=== PATIENT | female | born 1945 | race Hispanic/Latino ===

== ENCOUNTER 2018-07-18 17:58 | Emergency (ER) | payer MEDICARE ==
[~2018-07-18] VITALS: Ht 154.9 cm; Wt 61.7 kg
[~2018-07-18 17:58] MED LIST: AMLODIPINE BESYL5 MG PO; GLIPIZIDE5 MG PO; LOSARTAN POTASS25 MG PO; METOPROLOL TART25 MG PO; SIMVASTATIN20 MG PO
[2018-07-18 23:00] LABS: BILIRUBIN,URINE NEGATIVE (NEGATIVE); CLARITY,URINE CLOUDY (CLEAR); COLOR,URINE YELLOW (YELLOW); KETONES,URINE NEGATIVE (NEGATIVE); LEUKOCYTE ESTERASE ,URINE MODERATE (NEGATIVE); NITRITE,URINE NEGATIVE (NEGATIVE); PROTEIN,URINE DIPSTICK TRACE (NEGATIVE); URINE UROBILINOGEN 0.2 mg/dL (0.2 - 1)
[2018-07-18 23:28] LABS: BACTERIA,URINE MANY /HPF; EPITHELIAL CELLS,URINE FEW /LPF; WBC,URINE (MAN) >50 /HPF (0-5)
[2018-07-18] MEDS ORDERED: CEFTRIAXONE SOD 1 GM VIAL IM ONE (23:30)
[2018-07-18] MEDS ORDERED: CEFTRIAXONE SOD 1 GM VIAL ONE (23:31)
[2018-07-18 23:42] VITALS: BP 188/76
== END 2018-07-18 23:47 | disposition home or self-care (01) ==
LOC: ER 17:58
DX: R10.2 Pelvic and perineal pain (principal); N30.90 Cystitis, unspecified without hematuria; I10 Essential (primary) hypertension; E11.9 Type 2 diabetes mellitus without complications; E78.5 Hyperlipidemia, unspecified
CPT/HCPCS: 81001; 99283; J0696

== ENCOUNTER 2021-06-20 20:01 | Emergency (ER) | payer MEDICARE ==
[~2021-06-20] VITALS: Ht 154.9 cm; Wt 61.7 kg
[2021-06-20] MEDS ORDERED: ONDANSETRON HCL INJ 2MG/ML 2ML 2 MG/ML VIAL IV STA (20:08)
[2021-06-20] MEDS ORDERED: METOPROLOL TARTRATE INJ 1 MG/ML VIAL IV ONE (20:15)
[2021-06-20] MEDS ORDERED: Morphine 4mg Syringe 4 MG/ML INJ IV ONE (20:15)
[2021-06-20 20:22] LABS: BASOPHILS # (AUTO) 0.1 (0.0-0.1); BASOPHILS % 0.7 % (0.0-1.0); EOSINOPHILS # (AUTO) 0.2 (0.0-0.4); EOSINOPHILS % 2.6 % (0.0-6.0); HEMATOCRIT 35.1 % (34.2-44.1); HEMOGLOBIN 11.4 g/dL (12.0-16.0); LYMPHOCYTES # (AUTO) 2.9 (1.0-3.2); LYMPHOCYTES % 33.6 % (18.0-39.1); MEAN CORPUSCULAR HEMOGLOBIN 32.9 pg (28-32); MEAN CORPUSCULAR HGB CONC 32.5 g/dL (31-35); MEAN CORPUSCULAR VOLUME 101.2 fL (81-99); MONOCYTES # (AUTO) 0.7 (0.2-0.8); NEUTROPHILS # (AUTO) 4.8 (2.1-6.9); NEUTROPHILS % 54.9 % (38.7-80.0); PLATELET COUNT 296 x10e3/uL (140-360); RED BLOOD COUNT 3.47 x10e6/uL (3.6-5.1); RED CELL DISTRIBUTION WIDTH 12.9 % (11.7-14.4)
[2021-06-20 20:33] LABS: INR 0.89; PROTHROMBIN TIME 12.9 seconds (11.9-14.5)
[2021-06-20 20:34] LABS: PARTIAL THROMBOPLASTIN TIME 28.4 seconds (23.8-35.5)
[2021-06-20 20:42] LABS: ALBUMIN 3.5 g/dL (3.5-5.0); ALBUMIN/GLOBULIN RATIO 0.8 (0.8-2.0); ANION GAP 13.1 mmol/L (8-16); CALCIUM 9.6 mg/dL (8.4-10.2); CREATININE, SERUM 2.33 mg/dL (0.57-1.11); POTASSIUM 4.1 mmol/L (3.5-5.1)
[2021-06-20 20:48] LABS: CREATINE KINASE MB 17.1 ng/mL (0-5.0)
[2021-06-20] MEDS ORDERED: ASPIRIN 81 MG CHEW TAB PO ONE (21:00)
[2021-06-20] MEDS ORDERED: ASPIRIN 81 MG CHEW TAB ONE (21:12)
[2021-06-20] MEDS ORDERED: HEPARIN 25,000 UNIT 600 UNIT in DEXTROSE 5% 250ML 250 ML IV SCH (21:30)
[2021-06-20] MEDS ORDERED: NITROGLYCERIN 2% OINT 1 GM PKT TOP ONE (21:30)
[2021-06-20] MEDS ORDERED: HEPARIN SOD (PORCINE) 5,000 UNIT/ML VIAL IV ONE (21:30)
[2021-06-20] MEDS ORDERED: HEPARIN 25,000 UNIT DRIP IV ONE (22:14)
[2021-06-21] MEDS ORDERED: SODIUM CHLORIDE 0.9% 1000ML 1,000 ML IV ONE (00:30)
[2021-06-21 01:07] LABS: CREATINE KINASE MB 29.9 ng/mL (0-5.0)
== END 2021-06-21 02:20 | disposition other institution (70) ==
LOC: ER 20:03
DX: I21.4 Non-ST elevation (NSTEMI) myocardial infarction (principal); I16.0 Hypertensive urgency; R50.9 Fever, unspecified; I12.9 Hypertensive chronic kidney disease with stage 1 through stage 4 chronic kidney disease, or unspecified chronic kidney disease; E11.22 Type 2 diabetes mellitus with diabetic chronic kidney disease; N18.9 Chronic kidney disease, unspecified; E78.5 Hyperlipidemia, unspecified; R94.31 Abnormal electrocardiogram [ECG] [EKG]; Z20.822 Contact with and (suspected) exposure to COVID-19
CPT/HCPCS: 36415; 51700; 71045; 80053; 82550; 82553; 84484; 85025; 85379; 85610; 85730; 93005; 99284; J1644; J2270; J2405; J7030; U0002

== ENCOUNTER 2021-07-04 11:28 | Emergency (ER) | payer MEDICARE ==
[~2021-07-04] VITALS: Ht 154.9 cm; Wt 61.7 kg
== END 2021-07-04 12:46 | disposition home or self-care (01) ==
LOC: ER 11:50
DX: Z48.02 Encounter for removal of sutures (principal)
CPT/HCPCS: 99282